=== PATIENT | female | born 1960 | race African-American/Black ===

== ENCOUNTER 2022-02-24 20:25 | Emergency (ER) | payer OTHER, MEDICARE | END 2022-02-24 21:25 | disposition home or self-care (01) | LOC: NAV ERS 20:25 | DX: S16.1XXA Strain of muscle, fascia and tendon at neck level, initial encounter (principal); I11.0 Hypertensive heart disease with heart failure; I25.2 Old myocardial infarction; J44.9 Chronic obstructive pulmonary disease, unspecified; O25.10 Malnutrition in pregnancy, unspecified trimester; E66.9 Obesity, unspecified; F17.210 Nicotine dependence, cigarettes, uncomplicated; Z79.899 Other long term (current) drug therapy; V49.9XXA Car occupant (driver) (passenger) injured in unspecified traffic accident, initial encounter | CPT/HCPCS: 72050 ==